=== PATIENT | male | born 1975 | race African-American/Black ===

== ENCOUNTER 2019-02-03 16:18 | Emergency (ER) | payer BC, OTHER ==
--- NOTE | 2019-02-03 19:04 | ED Physician Documentation ---
PD HPI LOWER EXT INJURY - Stated complaint Stated Complaint: RT FOOT BUMP - Chief complaint Chief Complaint: Ext Problem - History obtained from History obtained from: Patient - History of Present Illness PD HPI LOW EXT INJURY LOCATION: Right, Foot Type of injury: Other (he has had slowly progressing lump on bottom of foot that has now gotten painful to walk on. No drainage. No noted puncture nor injury at onset.) Timing - onset: How many months ago (1) Timing - duration: Months (1) Timing - details: Gradual onset, Still present Worsened by: Palpating, Other (walking/weight bearing) Associated symptoms: No: Weakness, Numbness Similar symptoms before: Has not had sx before Recently seen: Not recently seen Review of Systems Skin: reports: Lesions (just the one spot on the right foot. No other spots.) PD PAST MEDICAL HISTORY - Past Medical History Past Medical History: No - Past Surgical History Past Surgical History: No - Present Medications Home Medications: Ambulatory Orders Medication Instructions Recorded Confirmed Cyclobenzaprine [Flexeril] 10 mg PO Q8H PRN #20 tablet 08/13/13 Ibuprofen [Motrin] 400 mg PO Q6H PRN #30 tablet 08/13/13 Salicylic Acid [Plantar Wart 1 each TP DAILY #10 adh..patch 02/03/19 Remover] - Allergies Allergies/Adverse Reactions: Allergies Allergy/AdvReac Type Severity Reaction Status Date / Time No Known Drug Allergies Allergy Verified 02/03/19 16:31 - Social History Does the pt smoke?: No Smoking Status: Never smoker Does the pt drink ETOH?: No Does the pt have substance abuse?: No - Immunizations Immunizations are current?: Yes PD ED PE NORMAL - Vitals Vital signs reviewed: Yes - General General: Alert and oriented X 3, No acute distress, Well developed/nourished - Derm Derm: Normal color, Warm and dry - Extremities Extremities: Other (right foot mid plantar area with well delineated raised, hyperkeratotic, firm area without any fluctuance nor subcut induration c/w wart.) - Neuro Neuro: No motor deficit, No sensory deficit Results - Vitals Vitals: Oxygen O2 Source Room air PD MEDICAL DECISION MAKING - ED course Complexity details: considered differential (thickened wart and is tender. No signs of infection. I trimmed it down with scalpel to almost skin level and is softer and not as tender. ), d/w patient Departure - Departure Disposition: 01 Home, Self Care Clinical Impression: Plantar wart of right foot Foot pain Qualifiers: Laterality: right Qualified Code(s): M79.671 - Pain in right foot Condition: Stable Record reviewed to determine appropriate education?: Yes Instructions: ED Warts Plantar Prescriptions: Salicylic Acid [Plantar Wart Remover] 1 each TP DAILY #10 adh..patch Comments: Your foot should be less painful with the major lump of the wart being trimmed away. Use Tylenol or ibuprofen if needed for pains. Use a salicylate patch daily on the area and use the scalpel as I showed you to trim away the skin a little bit each day until it seems to be resolved and flat to the skin. Recheck if not fully improved over the next week. Discharge Date/Time: 02/03/19 19:58
[2019-02-03 19:59] VITALS: BP 160/98
== END 2019-02-03 19:58 | disposition home or self-care (01) ==
LOC: ED 16:18
DX: B07.0 Plantar wart (principal); M79.671 Pain in right foot
CPT/HCPCS: 99282; 99283